=== PATIENT | female | born 1980 | race Caucasian/White ===

== ENCOUNTER → 2016-03-25 | Outpatient (CLI) | payer OTHER ==
[~2016-03-25] MED LIST: DOCU10ELUD PO; FERR325T3 PO; GLYB5TAB5 PO; GLYBPOW XX; IBUP80TA PO; IRON325T3 PO; PERCOCET PO; PRENTAB9 PO
--- NOTE | 2016-03-26 03:13 | REP ---
Clinical: Growth evaluation. Biophysical profile. Comparison: 02/12/2016 . Findings: Examination demonstrates a single live intrauterine in cephalic presentation. motion is identified by technologist. Placenta is noted anteriorly and grade two without evidence for placenta previa or abruption. Amniotic fluid volume is mildly increased. Cervix measures 3.2 cm in length and appears closed. No evidence for nuchal cord. Gestational age by first ultrasound 33 weeks 5 days with PEDRO 05/08/2016 . Gestational age by current measurements 35 weeks 1 day with PEDRO 04/28/2016 . FHR equals 136 beats per minute. BPD 8.9 cm 36 weeks 0 days HC 31.8 cm 35 weeks 5 days AC 32.0 cm 35 week 6 day FL 6.6 cm 33 weeks 5 days HL 5.9 34 weeks 0 days HC/AC ratio 0.99 Estimated weight 2654 grams ( 77th percentile). Biophysical profile score equals 8/8. Amniotic fluid index equals 29.4 cm. Impression: Single live intrauterine in cephalic presentation demonstrating appropriate interval growth compared to first ultrasound. Amniotic fluid volume is above normal limits for age suggesting mild polyhydramnios. No anatomical abnormalities are appreciated. Signed by Watson Liu MD 03/26/2016 03:05 A
== END ==
LOC: M RAD 13:46
PROVIDERS: ATTEND Obstetrics & Gynecology
DX: O24.419 Gestational diabetes mellitus in pregnancy, unspecified control (principal)

== ENCOUNTER → 2016-04-19 | Outpatient (REF) | payer OTHER | LOC: M LAB REF 17:02 | PROVIDERS: ATTEND Obstetrics & Gynecology | DX: O24.419 Gestational diabetes mellitus in pregnancy, unspecified control (principal) ==

== ENCOUNTER → 2016-04-22 | Outpatient (CLI) | payer OTHER ==
--- NOTE | 2016-04-22 11:51 | REP ---
Clinical: Growth evaluation. History of polyhydramnios . Comparison: 03/25/2016 . Findings: Examination demonstrates a single live intrauterine in cephalic presentation. motion is identified by technologist. Placenta is noted anterior and grade one without evidence for placenta previa or abruption. Amniotic fluid volume is elevated and consistent with polyhydramnios. No evidence for nuchal cord. Gestational age by LMP 36 weeks 2 days with PEDRO 05/18/2016 . Gestational age by current measurements 37 weeks 4 days with PEDRO 05/09/2016 . FHR equals 130 beats per minute. BPD 9.5 cm 38 weeks 4 days HC 33.2 cm 37 weeks 6 days AC 36.2 cm 40 weeks 1 day FL 7.2 cm 36 weeks 6 days HL 6.7 cm of 38 weeks 6 days HC/AC ratio 0.92 Estimated weight 3661 grams (>97th percentile). Amniotic fluid volume equals 30.6 cm (single deepest pocket). Umbilical cord SD ratio equals 1.98 (1.88 - 2.88). Impression: Single live intrauterine in cephalic presentation. Estimated weight is greater than 97 percentile. Polyhydramnios noted. Limited anatomical assessment is unremarkable. Signed by Watson Liu MD 04/22/2016 11:41 A
== END ==
LOC: M RAD 10:44
PROVIDERS: ATTEND Obstetrics & Gynecology
DX: Z34.83 Encounter for supervision of other normal pregnancy, third trimester (principal); O40.3XX1 Polyhydramnios, third trimester, fetus 1

== ENCOUNTER 2016-05-13 05:33 | Inpatient (IN) | payer OTHER ==
[2016-05-13] VITALS (8 sets, daily range): BP systolic 105–125; BP diastolic 57–75
[~2016-05-13] VITALS: Ht 160 cm; Wt 97.0 kg
[~2016-05-13 05:33] MED LIST changes: +GLIM2TAB PO; +MULTCAP8 PO
[2016-05-13] MEDS ORDERED: LR 1,000 ML IV SCH (05:40)
[2016-05-13] MEDS ORDERED: LACTATED RINGER'S 1000 ML IV STA (05:40)
[2016-05-13] MEDS ORDERED: BICITRA 30ML SOLN UDC PO ONE (05:45)
[2016-05-13 06:14] LABS: MEAN CORPUSCULAR HEMOGLOBIN 30.6 pg (27.0-33.0); MEAN CORPUSCULAR HGB CONC 34.3 g/dl (32.0-36.5); MEAN CORPUSCULAR VOLUME 89.4 fl (80.0-96.0); RED CELL DISTRIBUTION WIDTH 13.2 % (11.5-14.5); WHITE BLOOD COUNT 12.8 K/mm3 (4.0-10.0)
[2016-05-13] MEDS ORDERED: CLINDAMYCIN 900 MG in APPROPRIATE DILUENT 1 EA IV ONE (06:30)
[2016-05-13] MEDS ORDERED: GENTAMICIN 300 MG in D5W 50 ML IV ONE (06:30)
[2016-05-13] MEDS ORDERED: OXYTOCIN INJ 10 UNITS/ML VIAL (J2590) As Ordered ONE (07:06)
[2016-05-13] MEDS ORDERED: MORPHINE PRES-FREE INJ 10 MG/10 ML VIAL (J2274) As Ordered ONE (07:09)
[2016-05-13] MEDS ORDERED: NALOXONE INJ 0.4 MG/1 ML VIAL (J2310) IV PRN ×2 (07:41)
[2016-05-13] MEDS ORDERED: METOCLOPRAMIDE INJ 10MG/2ML VIAL (J2765) IV PRN (07:41)
[2016-05-13] MEDS ORDERED: ONDANSETRON 4MG/2ML VIAL (J2405) IV PRN ×3 (07:41→09:30)
[2016-05-13] MEDS ORDERED: NALBUPHINE HCL 10 MG/ML AMP (J2300) IV PRN ×2 (07:41→09:30)
[2016-05-13] MEDS ORDERED: PHENYLephrine HCL 500 MCG/5 ML (100MCG/ML) SYRINGE (J2370) As Ordered ONE (08:33)
[2016-05-13] MEDS: PRENATAL VITAMIN TAB PO SCH (09:00)
[2016-05-13] MEDS: DOCUSATE SODIUM 100 MG CAP PO SCH ×2 (09:00→21:31)
[2016-05-13] MEDS ORDERED: KETOROLAC 60 MG/2 ML VIAL (J1885) As Ordered ONE (09:05)
[2016-05-13] MEDS: LR 1,000 ML IV SCH ×3 (09:13→23:35)
[2016-05-13] MEDS ORDERED: PERCOCET 5MG/325MG TAB PO PRN ×3 (09:15→09:30)
[2016-05-13] MEDS ORDERED: PROMETHAZINE 25 MG TAB PO PRN (09:15)
[2016-05-13] MEDS ORDERED: fentaNYL 100 MCG/2 ML INJECTION (J3010) IV PRN (09:30)
[2016-05-13] MEDS: KETOROLAC 30 MG/ML VIAL (J1885) IV SCH ×2 (14:51→21:30)
[2016-05-13] MEDS: MEASLES,MUMPS,RUBELLA VACCINE INJ (MMR-II) (90707) SC SCH ×2 (14:52→14:54)
[2016-05-13] MEDS: RHOGAM 300 MCG (1500 IU) INJ (J2790) IM SCH ×3 (14:53→14:55)
[2016-05-14 02:29] VITALS: BP 113/62
[2016-05-14] MEDS: KETOROLAC 30 MG/ML VIAL (J1885) IV SCH ×2 (03:27→08:18)
[2016-05-14] MEDS ORDERED: IBUP600T26 PO (06:19)
[2016-05-14] MEDS ORDERED: COLA100C PO (06:19)
[2016-05-14] MEDS ORDERED: OXYC1TAB23 PO (06:20)
[2016-05-14 06:32] VITALS: BP 113/66
[2016-05-14 06:49] LABS: MEAN CORPUSCULAR HGB CONC 33.3 g/dl (32.0-36.5); MEAN CORPUSCULAR VOLUME 90.3 fl (80.0-96.0); RED CELL DISTRIBUTION WIDTH 13.2 % (11.5-14.5)
[2016-05-14] MEDS ORDERED: FERR325T3 PO (06:52)
[2016-05-14] MEDS: PRENATAL VITAMIN TAB PO SCH (08:17)
[2016-05-14] MEDS: DOCUSATE SODIUM 100 MG CAP PO SCH ×2 (08:17→20:44)
[2016-05-14] MEDS: FERROUS SULFATE 325MG TAB PO SCH ×2 (08:17→20:45)
[2016-05-14] MEDS: LR 1,000 ML IV SCH ×2 (09:13→15:47)
[2016-05-14 10:00] VITALS: BP 123/63
[2016-05-14 14:00] VITALS: BP 129/75
[2016-05-14] MEDS ORDERED: OSELTAMIVIR PHOSPHATE 75 MG CAP (TAMIFLU) PO ONE (15:00)
[2016-05-14] MEDS: IBUPROFEN 800 MG TAB PO SCH (15:29)
[2016-05-14] MEDS: guaiFENesin DM LIQ 10ML UD PO PRN ×2 (16:24→22:31)
[2016-05-14 18:00] VITALS: BP 136/72
[2016-05-14 22:15] VITALS: BP 136/69
[2016-05-15] MEDS: IBUPROFEN 800 MG TAB PO SCH ×2 (01:06→10:03)
[2016-05-15] MEDS: LR 1,000 ML IV SCH (01:13)
[2016-05-15 02:26] VITALS: BP 131/74
[2016-05-15] MEDS: guaiFENesin DM LIQ 10ML UD PO PRN (05:50)
[2016-05-15 05:58] VITALS: BP 131/77
--- NOTE | 2016-05-15 06:02 | DSES ---
DATE OF ADMISSION: 05/13/2016 DATE OF DISCHARGE: 05/15/2016 DISCHARGE DIAGNOSES: 1. Repeat section at term. 2. Bilateral tubal ligation. SURGEON. Dr. Satish Angeles HISTORY: Yolis is a 36-year-old, 3, para 3-0-0-3 now, who underwent repeat section at 39 weeks gestation. Surgery was complicated by extensive adhesions. Estimated blood loss 700 mL. The patient's postoperative course has been uncomplicated. She has been out of bed for self care, yamil care and infant care. Denies dizziness, headaches and heart palpitations. She is breast-feeding without difficulty and does desire discharge today. OBJECTIVE: Vital signs were stable. Temperature 98.6, pulse 113, respirations 16, blood pressure 131/74. Preoperative CBC with a hemoglobin of 10.3, 30.1 for hematocrit, platelets 233. Postoperative CBC, hemoglobin 8.0, hematocrit 23.9 and platelets 164. Of note, the patient's child at home tested positive for influenza on 05/13/2016. Patient has been started on a prophylactic course of Tamiflu as well and will be discharged home with medication to hand picker as well. PLAN: Discharge patient to home today. I did review discharge instruction that include a 2-week incision check at [facility], followed by a 6-week appointment. I reviewed discharge instructions that included breast care, incision care, yamil care, activity and lifting restrictions, pelvic rest, danger signs to report and access to care as well. Prescriptions for ferrous sulfate 325 mg by mouth twice a day, ibuprofen, Percocet 5/325 every 6 hours as needed for pain. as well as Tamiflu 775 mg daily times 10 days has been eScript to her pharmacy. The patient did have all her questions answered and does desire to discharge home today.
[2016-05-15] MEDS ORDERED: OXYC1TAB23 PO (07:13)
[2016-05-15] MEDS ORDERED: GUAI100S29 PO (07:15)
[2016-05-15] MEDS: DOCUSATE SODIUM 100 MG CAP PO SCH (09:00)
[2016-05-15] MEDS: PRENATAL VITAMIN TAB PO SCH (10:02)
[2016-05-15] MEDS: FERROUS SULFATE 325MG TAB PO SCH (10:02)
== END 2016-05-15 10:35 | disposition home or self-care (01) | DRG 540 ==
LOC: M LDI 05:33 → M OBS 10:44
PROVIDERS: ADMIT Obstetrics & Gynecology; ATTEND Obstetrics & Gynecology
PROC: 0UB70ZZ Excision of Bilateral Fallopian Tubes, Open Approach (ICD-10-PCS; 2016-05-13)
PROC: 10D00Z1 Extraction of Products of Conception, Low, Open Approach (ICD-10-PCS; principal; 2016-05-13 07:30)
DX: O24.425 Gestational diabetes mellitus in childbirth, controlled by oral hypoglycemic drugs (principal); O40.3XX0 Polyhydramnios, third trimester, not applicable or unspecified; O34.211 Maternal care for low transverse scar from previous cesarean delivery; Z37.0 Single live birth; Z3A.39 39 weeks gestation of pregnancy; Z30.2 Encounter for sterilization

== ENCOUNTER → 2016-05-27 | Outpatient (CLI) | payer OTHER ==
[~2016-05-27] MED LIST changes: +COLA100C PO; +GUAI100S29 PO; +IBUP600T26 PO; +OXYC1TAB23 PO
--- NOTE | 2016-05-27 15:42 | REP ---
RIGHT BREAST ULTRASOUND: 05/27/2016. Clinical history: Breast feeding mother with suspected abscess retroareolar region right breast. No prior study. Findings: Sonographic evaluation of the right breast was performed. The technologist notes redness in the periareolar region of the right breast. Posterior to the nipple is a hypoechoic region some internal echoes consistent with an abscess with the area measuring 2.6 x 2.7 x 1.6 cm. Some dilated ducts and edematous tissues are noted in the retroareolar zone. Impression: 1. Retroareolar right breast 2.6 x 2.7 x 1.6 cm abscess with some dilated ducts and edematous tissues seen throughout the breast. No other significant finding. Signed by Payam Merino MD 05/27/2016 05:44 P
== END ==
LOC: M RAD 14:35
PROVIDERS: ATTEND Specialist
DX: N61.1 Abscess of the breast and nipple (principal)

== ENCOUNTER → 2016-05-28 | Outpatient (REF) | payer OTHER | LOC: EEVIPCON 17:04 → M LAB REF 17:04 | PROVIDERS: ATTEND Surgery | DX: N61.1 Abscess of the breast and nipple (principal) ==

== ENCOUNTER → 2016-07-19 | Outpatient (CLI) | payer OTHER ==
[~2016-07-19] MED LIST changes: -COLA100C PO; +COLA100C3 PO
== END ==
LOC: M LAB 08:07
PROVIDERS: ATTEND Advanced Practice Midwife
DX: O24.419 Gestational diabetes mellitus in pregnancy, unspecified control (principal)

== ENCOUNTER → 2016-10-08 | Outpatient (REF) | payer OTHER ==
[~2016-10-08] MED LIST changes: -COLA100C3 PO; +COLA100C5 PO; +IBUP-1022 PO; -IBUP600T26 PO
== END ==
LOC: M LAB REF 17:53
PROVIDERS: ATTEND Specialist
DX: Z12.4 Encounter for screening for malignant neoplasm of cervix (principal)

== ENCOUNTER → 2017-03-13 | Outpatient (CLI) | payer OTHER | LOC: M WUC 10:25 | DX: R06.02 Shortness of breath (principal) | CPT/HCPCS: 71046 ==

== ENCOUNTER 2018-07-07 21:44 | Emergency (ER) | payer OTHER ==
[~2018-07-07] VITALS: Ht 157.5 cm; Wt 100.0 kg
[~2018-07-07 21:44] MED LIST changes: -DOCU10ELUD PO; +DOCU5LIQ PO; -PERCOCET PO
[2018-07-07] MEDS ORDERED: AUGM875T28 PO (22:06)
[2018-07-07] MEDS ORDERED: BENZONATATE 100 MG CAP PO ONE (23:45)
[2018-07-07] MEDS ORDERED: TESS100C PO (23:48)
[2018-07-07 23:49] VITALS: BP 132/82
--- NOTE | 2018-07-08 00:35 | REP ---
Clinical: Cough . Comparison: 03/13/2017 . Technique: PA and lateral. Findings: The mediastinum and cardiac silhouette are normal. The lung cardona are clear and without acute consolidation, effusion, or pneumothorax. The skeletal structures are intact and normal. Impression: 1. No acute cardiopulmonary process. Electronically Signed by Watson Liu MD 07/08/2018 12:27 A
--- NOTE | 2018-07-08 20:24 | ECGEPIP ---
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
== END 2018-07-07 23:52 | disposition home or self-care (01) ==
LOC: M ED 21:44
DX: J31.2 Chronic pharyngitis (principal); Z88.8 Allergy status to other drugs, medicaments and biological substances

== ENCOUNTER → 2019-10-21 | Outpatient (REF) | payer OTHER ==
[~2019-10-21] MED LIST changes: +AUGM875T28 PO; -GLIM2TAB PO; +GLIM2TAB4 PO; +TESS100C PO
== END ==
LOC: M SFHCWAGY 14:36
PROVIDERS: ATTEND Specialist
DX: Z12.4 Encounter for screening for malignant neoplasm of cervix (principal)

== ENCOUNTER → 2022-05-08 | Outpatient (REF) | payer OTHER | LOC: M PLALAB 13:01 | PROVIDERS: ATTEND Specialist | DX: Z01.419 Encounter for gynecological examination (general) (routine) without abnormal findings (principal) ==

== ENCOUNTER → 2022-09-04 | Outpatient (CLI) | payer OTHER | LOC: M WHC 11:57 | PROVIDERS: ATTEND Specialist | DX: Z12.31 Encounter for screening mammogram for malignant neoplasm of breast (principal) ==

== ENCOUNTER → 2023-09-08 | Outpatient (CLI) | payer OTHER | LOC: M WHC 11:25 | PROVIDERS: ATTEND Internal Medicine | DX: Z12.31 Encounter for screening mammogram for malignant neoplasm of breast (principal) ==

== ENCOUNTER → 2023-09-22 | Outpatient (CLI) | payer OTHER ==
[2023-09-22 13:14] LABS: ALBUMIN 3.4 G/DL (3.2-5.2); ALKALINE PHOSPHATASE 65 U/L (46-116); ALT/SGPT 23 U/L (7.0-40); AST/SGOT 11 U/L (<34); BILIRUBIN,TOTAL 0.6 MG/DL (0.3-1.2); BLOOD UREA NITROGEN 16 MG/DL (9-23); CALCIUM LEVEL 9.1 MG/DL (8.5-10.1); CARBON DIOXIDE LEVEL 23 MMOL/L (20-31); CHLORIDE LEVEL 107 MMOL/L (98-107); CHOLESTEROL LEVEL 183 MG/DL (<200); CHOLESTEROL RISK RATIO 4.39 (<5); CREATININE FOR GFR 0.77 MG/DL (0.55-1.30); GLOMERULAR FILTRATION RATE > 60.0 (>58); GLUCOSE, FASTING 117 MG/DL (60-100); HDL CHOLESTEROL 41.6 MG/DL (>40); LDL CHOLESTEROL 103.6 MG/DL (<100); NON-HDL-C 141.4 MG/DL; POTASSIUM SERUM 4.3 MMOL/L (3.5-5.1); SODIUM LEVEL 140 MMOL/L (136-145); TOTAL PROTEIN 7.3 G/DL (5.7-8.2); TRIGLYCERIDES LEVEL 189 MG/DL (<150)
== END ==
LOC: M WUC 08:18
PROVIDERS: ATTEND Internal Medicine
DX: E78.5 Hyperlipidemia, unspecified (principal)

== ENCOUNTER → 2024-02-13 | Outpatient (CLI) | payer OTHER | LOC: M WUC 12:24 | PROVIDERS: ATTEND Physician Assistant | DX: M79.672 Pain in left foot (principal) ==

== ENCOUNTER → 2024-09-16 | Outpatient (CLI) | payer OTHER ==
[2024-09-16 13:07] LABS: BASO # 0.1 10^3/uL (0.0-0.2); BASO % 1.0 % (0.0-1.0); EOS # 0.3 10^3/uL (0.0-0.5); EOS % 4.1 % (0.0-3.0); LYMPH # 2.3 10^3/uL (1.5-5.0); LYMPH % 32.3 % (24.0-44.0); MONO # 0.5 10^3/uL (0.0-0.8); MONO % 6.6 % (2.0-8.0); NEUTROPHILS # 4.0 10^3/uL (1.5-8.5); NEUTROPHILS % 55.6 % (36.0-66.0); PLATELET COUNT, AUTOMATED 408 10^3/uL (150-450)
[2024-09-16 13:13] LABS: ALT/SGPT 43 U/L (7.0-40); AST/SGOT 28 U/L (<34); CALCIUM LEVEL 9.3 MG/DL (8.5-10.1); CARBON DIOXIDE LEVEL 25 MMOL/L (20-31); CHLORIDE LEVEL 105 MMOL/L (98-107); CREATININE FOR GFR 0.82 MG/DL (0.55-1.30); GLOMERULAR FILTRATION RATE > 90.0 (>58); POTASSIUM SERUM 4.5 MMOL/L (3.5-5.1); SODIUM LEVEL 140 MMOL/L (136-145)
[2024-09-16 13:24] LABS: APPEARANCE, URINE HAZY (CLEAR); BACTERIA, URINE AUTO NEGATIVE (NEGATIVE); BILIRUBIN, URINE AUTO NEGATIVE (NEGATIVE); BLOOD, URINE BLOOD 2+ (NEGATIVE); GLUCOSE, URINE (UA) AUTO NEGATIVE (NEGATIVE); KETONE, URINE AUTO NEGATIVE (NEGATIVE); LEUKOCYTE ESTERASE, URINE AUTO 2+ (NEGATIVE); MUCUS, URINE SMALL (NEGATIVE); NITRITE, URINE AUTO NEGATIVE (NEGATIVE); PROTEIN, URINE AUTO NEGATIVE (NEGATIVE); RBC, URINE AUTO 3 /HPF (0-3); SPECIFIC GRAVITY URINE AUTO 1.026 (1.002-1.035); SQUAMOUS EPITHELIAL CELL UR AU 12 /HPF (0-6); UROBILINOGEN, URINE AUTO 0.2 mg/dL (0.0-2.0); WBC, URINE AUTO 19 /HPF (0-3)
[2024-09-16 13:46] LABS: ESTIMATED AVERAGE GLUCOSE 114.0 MG/DL (60-110)
== END ==
LOC: M WUC 08:43
PROVIDERS: ATTEND Family Medicine
DX: Z00.01 Encounter for general adult medical examination with abnormal findings (principal); L82.1 Other seborrheic keratosis; R73.09 Other abnormal glucose

== ENCOUNTER → 2024-10-29 | Outpatient (CLI) | payer OTHER ==
[~2024-10-29] MED LIST changes: -IBUP-1022 PO; +IBUP600T42 PO
== END ==
LOC: M WHC 09:56
PROVIDERS: ATTEND Specialist
DX: Z12.31 Encounter for screening mammogram for malignant neoplasm of breast (principal); R92.313 Mammographic fatty tissue density, bilateral breasts; R92.8 Other abnormal and inconclusive findings on diagnostic imaging of breast

== ENCOUNTER → 2024-10-29 | Outpatient (REF) | payer BC ==
[2024-11-03 14:33] LABS: HPV APTIMA Not Detected (Not Detected)
== END ==
LOC: M PLALAB 15:16
PROVIDERS: ATTEND Specialist
DX: Z12.4 Encounter for screening for malignant neoplasm of cervix (principal)
CPT/HCPCS: 87624; G0123

== ENCOUNTER → 2024-11-23 | Outpatient (CLI) | payer OTHER | LOC: M WHC 14:39 | PROVIDERS: ATTEND Specialist | DX: Z12.31 Encounter for screening mammogram for malignant neoplasm of breast (principal); R92.322 Mammographic fibroglandular density, left breast; N60.12 Diffuse cystic mastopathy of left breast ==

== ENCOUNTER → 2024-11-26 | Outpatient (CLI) | payer OTHER | LOC: M RAD 15:31 | PROVIDERS: ATTEND Specialist | DX: N92.6 Irregular menstruation, unspecified (principal) ==